=== PATIENT | female | born 1995 | race Caucasian/White ===

== ENCOUNTER 2017-10-23 20:23 | Emergency (ER) | payer OTHER ==
[~2017-10-23] VITALS: Ht 165.1 cm; Wt 58.2 kg
[2017-10-23 20:33] VITALS: BP 128/81; TEMP 98.8
[2017-10-23] MEDS ORDERED: YAZ 28 3 MG-0.01 TAB PO (20:36)
[2017-10-23] MEDS ORDERED: ZOFRAN 4MG T4 MG/TAB PO (20:37)
[2017-10-23 21:02] LABS: COLLECTION METHOD CLEAN CATCH
[2017-10-23 21:12] LABS: MUCOUS Present /lpf; PH 6 (5-8); SQUAMOUS EPITHELIAL 0-2 /hpf; URINE APPEARANCE Hazy; URINE BACTERIA None Seen /hpf; URINE BILIRUBIN Negative (NEGATIVE); URINE BLOOD Negative (NEGATIVE); URINE COLOR Yellow; URINE GLUCOSE Negative (NEGATIVE); URINE KETONE Negative (NEGATIVE); URINE LEUKOCYTE ESTERASE Negative (NEGATIVE); URINE NITRATE Negative (NEGATIVE); URINE PROTEIN(semi-quant) Negative (NEGATIVE); URINE RBC 0-2 /hpf; URINE UROBILINOGEN Negative (NEGATIVE)
[2017-10-23 22:01] VITALS: PULSE 85
== END 2017-10-23 22:01 | disposition home or self-care (01) ==
LOC: COL.ER 20:23
PROVIDERS: Physician Assistant
DX: S06.0X9A Concussion with loss of consciousness of unspecified duration, initial encounter (principal); G43.909 Migraine, unspecified, not intractable, without status migrainosus; W22.8XXA Striking against or struck by other objects, initial encounter; Y99.0 Civilian activity done for income or pay
CPT/HCPCS: J1885; J2765